=== PATIENT | female | born 2000 | race Caucasian/White ===

== ENCOUNTER 2020-04-20 18:54 | Emergency (ER) | payer SELFPAY ==
[~2020-04-20] VITALS: Ht 162.6 cm; Wt 47.2 kg
[2020-04-20 19:18] LABS: BASOPHILS # (AUTO) 0.1 X10'3 (0-0.2); BASOPHILS % (AUTO) 1.1 % (0-1); EOSINOPHILS # (AUTO) 0.4 X10'3 (0-0.9); EOSINOPHILS % (AUTO) 3.8 % (0-6); HEMATOCRIT 37.1 % (35.0-45.0); HEMOGLOBIN 12.3 g/dl (12.0-16.0); LYMPHOCYTES # (AUTO) 4.5 X10'3 (1.1-4.8); MEAN PLATELET VOLUME 8.5 FL (7.4-10.4); MONOCYTES # (AUTO) 0.9 X10'3 (0-0.9); MONOCYTES % (AUTO) 8.7 % (2-12); NEUTROPHILS % (AUTO) 40.4 % (42-75); PLATELET COUNT 278 X10'3 (140-440); RED BLOOD COUNT 4.22 X10'6 (4.20-5.60); RED CELL DISTRIBUTION WIDTH 13.3 % (11.5-14.5); WHITE BLOOD COUNT 9.8 X10'3 (4.5-11.0)
[2020-04-20 19:33] LABS: ALANINE AMINOTRANSFERASE 15 U/L (12-78); ALBUMIN 4.6 G/DL (3.4-5.0); ALBUMIN/GLOBULIN RATIO 1.4 (1.1-1.5); ALKALINE PHOSPHATASE 50 IU/L (20-180); ANION GAP 8 (8-16); ASPARTATE AMINO TRANSFERASE 14 U/L (10-37); BILIRUBIN,TOTAL 0.4 MG/DL (0.1-1.0); BLOOD UREA NITROGEN 10 MG/DL (7-18); BUN/CREATININE RATIO 11.6 (6.6-38.0); CALCIUM 8.5 MG/DL (8.5-10.1); CHLORIDE 104 MMOL/L (99-107); CREATININE 0.86 MG/DL (0.40-0.90); GLUCOSE 158 MG/DL (70-104); POTASSIUM 3.2 MMOL/L (3.5-5.1); SODIUM 139 MMOL/L (135-145); TOTAL PROTEIN 7.8 G/DL (6.4-8.2); eGFR 84 ML/MIN
[2020-04-20] MEDS ORDERED: LORazepam 1 MG tablet PO ONE (19:50)
[2020-04-20 19:59] VITALS: BP 115/66
[2020-04-20] MEDS ORDERED: potassium Cl 20 mEq SR tablet PO ONE (20:05)
[2020-04-20 20:10] LABS: C-REACTIVE PROTEIN 0.06 MG/DL (0.0-0.5)
[2020-04-20 20:21] LABS: D-DIMER < 0.19 MG/L FEU (0-0.50)
== END 2020-04-20 21:19 | disposition home or self-care (01) ==
LOC: ER 18:55
DX: R07.89 Other chest pain (principal); R00.0 Tachycardia, unspecified
CPT/HCPCS: 36415; 71045; 80053; 83880; 84484; 85025; 85379; 85651; 86140; 93005; 99285